=== PATIENT | male | born 1995 | race Caucasian/White ===

== ENCOUNTER 2020-05-25 16:28 | Emergency (ER) | payer OTHER ==
[~2020-05-25] VITALS: Ht 172.7 cm; Wt 99.8 kg
[2020-05-25] MEDS ORDERED: NORCO 5-325 TA1 EAC2 PO (17:54)
[2020-05-25] MEDS ORDERED: IBUPROFEN 800800 M1 PO (17:54)
[2020-05-25] MEDS ORDERED: DOXYCYCLINE 10100 MG PO (17:54)
[2020-05-25 18:31] VITALS: BP 142/84
== END 2020-05-25 18:32 | disposition home or self-care (01) ==
LOC: M.ERS 16:28
DX: S61.011A Laceration without foreign body of right thumb without damage to nail, initial encounter (principal); Z88.1 Allergy status to other antibiotic agents; Z88.2 Allergy status to sulfonamides; W26.8XXA Contact with other sharp object(s), not elsewhere classified, initial encounter; Y93.89 Activity, other specified; Y92.89 Other specified places as the place of occurrence of the external cause; Y99.8 Other external cause status

== ENCOUNTER 2021-04-02 19:29 | Emergency (ER) | payer OTHER ==
[~2021-04-02] VITALS: Ht 177.8 cm; Wt 104.3 kg
[~2021-04-02 19:29] MED LIST: DOXYCYCLINE 10100 MG PO; IBUPROFEN 800800 M1 PO; NORCO 5-325 TA1 EAC2 PO
[2021-04-02 19:43] VITALS: BP 141/83
[2021-04-02] MEDS ORDERED: IBUPROFEN 800800 M1 PO (22:02)
[2021-04-02] MEDS ORDERED: FLEXERIL PO (22:02)
[2021-04-02] MEDS ORDERED: NORCO5 PO (22:02)
== END 2021-04-02 22:18 | disposition home or self-care (01) ==
LOC: M.ERS 19:29
DX: G89.29 Other chronic pain (principal); M54.5 Low back pain; Z88.1 Allergy status to other antibiotic agents; Z88.2 Allergy status to sulfonamides; Z88.8 Allergy status to other drugs, medicaments and biological substances